=== PATIENT | female | born 1970 | race Caucasian/White ===

== ENCOUNTER 2016-09-17 08:50 | Day surgery (SDC) | payer BC ==
[2016-09-02 10:25] VITALS: BMI 26.6
--- NOTE | 2016-09-16 09:56 | HP ---
Admitting History and Physical - Primary Care Physician PCP: Clemente Mcginnis - Admission Chief Complaint: Left breast cancer/ Left breast Atypia History of Present Illness: 45 year old premenapausal femlae with abnormal mammogram showing left breast upper inner density. compression veiwe showed 1 cm density left 10:00 07/2016. 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 She has 4 clips in upper inner aspect of left breast which can be localized by bracketing them and removed with wide excision. Anterior to posterior 4.5 cm and distance 3 cm medially to laterally. Cancer is in the middle dept and there were two clips from both previous MRI and US core biopsies. There is a separate clip from biopsy in far upper outer aspect of left breast which showed some atypia which will also need needle localized. History Source: Patient Limitations to Obtaining History: No Limitations - Past Medical History ...LMP: 08/14/16 ...: No - Past Surgical History Additional Past Surgical History: ovarian cystectomy 2000 benign - Smoking History Smoking history: Never smoked Have you smoked in the past 12 months: No - Alcohol/Substance Use Hx Alcohol Use: Yes (OCCASIONAL) Home Medications - Allergies Allergies/Adverse Reactions: Allergies Allergy/AdvReac Type Severity Reaction Status Date / Time codeine AdvReac Severe HEADACHES Verified 09/02/16 10:17 - Home Medications Home Medications: Ambulatory Orders Cholecalciferol (Vitamin D3) [Vitamin D3] 2,000 unit PO DAILY 09/02/16 Multivitamins [Tab-A-Vit -] 1 tab PO DAILY 09/02/16 Family Disease History - Family Disease History Family Disease History: CA: Mother (uterine caner) Physical Examination Constitutional: Yes: Well Nourished Breast(s): Yes: Other (mildly ptotic full C cup bilaterally which are symetrical.post biopsy changes left breast typical changes from biopsies but no plapable masses. fatty dense breast bilaterally no palpable adenopathy bilaterally right breast negative.) Problem List - Problems (1) Breast cancer, left breast Code(s): C50.912 - MALIGNANT NEOPLASM OF UNSPECIFIED SITE OF LEFT FEMALE BREAST Qualifiers: Breast location: upper inner quadrant of breast Patient sex: female (2) Atypical ductal hyperplasia of left breast Code(s): N60.92 - UNSPECIFIED BENIGN MAMMARY DYSPLASIA OF LEFT BREAST Assessment/Plan Left breast wide excision with bracketed needl localizations left sentenel node biopsy , lymphoscintogram , possible axillary node dissection, mastopexy, left breast needle localization for atypia
[2016-09-17] MEDS ORDERED: ISOSULFAN BLUE 10 MG/ML VIAL SQ ONE (13:00)
[2016-09-17] MEDS ORDERED: LIDOCAINE HCL 1%, 10 MG/ML (20ML VIAL) ONE (13:00)
[2016-09-17] MEDS ORDERED: MIDAZOLAM HCL 2 MG/2 ML SINGLE DOSE VIAL ONE (13:10)
[2016-09-17] MEDS ORDERED: PROPOFOL 20 ML ONE ×4 (13:10→14:43)
[2016-09-17] MEDS ORDERED: LIDOCAINE HCL/PF 2% SDV 5ML VIAL ONE (13:14)
[2016-09-17] MEDS ORDERED: DEXAMETHASONE SOD PHOSPHATE 4 MG/1 ML VIAL ONE (13:14)
[2016-09-17] MEDS ORDERED: ceFAZolin SODIUM 1 GM VIAL ONE (13:14)
[2016-09-17] MEDS ORDERED: ONDANSETRON 4 MG/2 ML VIAL ONE ×2 (13:14→15:58)
[2016-09-17] MEDS ORDERED: KETOROLAC TROMETHAMINE 30 MG/1 ML VIAL IVPUSH PRN (13:21)
[2016-09-17] MEDS ORDERED: DEXTROSE 5%-0.45% SALINE 1,000 ML IV SCH (13:30)
[2016-09-17] MEDS ORDERED: ONDANSETRON 4 MG/2 ML VIAL IVPB PRN (13:41)
[2016-09-17] MEDS ORDERED: LIDOCAINE 1%-EPI 1:100,000 30 ML MDV IJ ONE (13:43)
[2016-09-17] MEDS ORDERED: PROMETHAZINE HCL 25 MG/1 ML VIAL IVPUSH PRN (15:52)
[2016-09-17] MEDS ORDERED: PROMETHAZINE HCL 25 MG/1 ML VIAL ONE (16:24)
[2016-09-17 17:11] VITALS: PULSE 61; TEMP 98.1
[2016-09-17 18:05] VITALS: BP 114/78
--- NOTE | 2016-09-18 16:09 | OP ---
DATE OF PROCEDURE: 09/17/2016 PROCEDURE: 1. Left breast wide excision with bracketed localization in the left breast upper inner quadrant 2. Left breast wide excision in the upper outer quadrant 3. Needle localization with left axillary sentinel lymph node biopsy 4. Left breast tissue arrangement reconstruction by Dr. Roberts PREOPERATIVE DIAGNOSIS: 1. Left breast cancer, upper inner quadrant 2. Left breast atypia, upper outer quadrant ANESTHESIA: General laryngeal mask airway anesthesia PRIMARY SURGEON: Kacie Mcginnis MD POURER: YOLA Santana COMPLICATIONS: There were no complications. PRIMARY SURGEON FOR THE BREAST TISSUE RE-ARRANGEMENT RECONSTRUCTION: Kacie Roberts MD BRIEF HISTORY: The patient is a 45-year-old G3, P2, premenopausal white female with [place] and [place] descent. She has no family history of breast or ovarian cancer, but her mother had uterine cancer. The patient had an abnormal mammography with a density in the upper inner aspect of the left breast, and ultrasound showed a 1-cm density about 1 cm from the nipple at the 10 o'clock region. She underwent an ultrasound-guided core biopsy showing infiltrating ductal cancer with mucinous features, which was ER/NM positive and HER2/yue negative by FISH. She had some separate calcifications anterior and posterior to the cancer, which were biopsied showing atypia. She then underwent an MRI showing some other findings in the upper outer aspect of the left breast, and she underwent an MRI biopsy of the upper outer quadrant area showing atypia. She also had a re-biopsy of the same cancer region under MRI, which again came back with the cancer. On reviewing the films, it was felt that we could do a bracketed localization and excision with breast conservation for this upper inner quadrant left breast cancer as long as we could do a tissue re-arrangement, and she was seen by the plastic surgeon preoperatively. The patient understood the need for a separate excision of the atypia in the upper outer aspect as well as a sentinel lymph node biopsy. The patient was brought in for the procedure on September 17, 2016 and first went to [facility] where the needle localization as well as lymphoscintigraphy was performed. She was then brought to [place], and in the holding area site, verification was made and informed consent was obtained. She was marked preoperatively by the plastic surgeon for a slight mastopexy and tissue re-arrangement. She was brought into the operating room and laid on the OR table in the supine position. Venodynes were placed on the lower extremities prior to induction. She received a gram of Ancef prior to incision. She underwent general laryngeal mask airway anesthesia. Both breasts were sterilely prepped and draped in the usual fashion with the wires prepped in the field. 3 mL of Lymphazurin Blue were injected intradermally just on the upper aspect of the nipple areolar complex on the left breast. The sentinel lymph node biopsy was first performed. An incision was made just below the hair barrier of the left axilla, and a blue lymphatic was easily seen, coursing to a blue hot node with a 10-second gamma count of 10,027. The second hot node, which was not blue was removed with a 10-second gamma count of 1,964. No other blue or hot nodes were found, and background counts to move these 2 nodes was 132. These nodes were both sent for permanent section in formalin. Hemostasis was achieved. The upper outer quadrant wide excision was undertaken through the axillary incision. We also removed the tissue around the wire in the upper outer aspect of the left breast and was oriented with the long lateral short superior suture, and specimen radiograph showed removal of the clip in question. Hemostasis was achieved, and the axillary wound was closed using interrupted 2-0 plain suture. The skin was closed using an interrupted 3-0 deep dermal Vicryl suture and a running 4-0 subcuticular Biosyn suture. At this point, a mastopexy reduction and tissue re-arrangement incision was made just on the superior periareolar border of the left breast nipple areolar complex. We were able to remove a fair amount of tissue since we were doing a mastopexy reduction with plastic surgery. She had bracketed localization of both the anterior and posterior aspects of the upper inner aspect of the left breast. Dissection was undertaken around both wires, being sure to remove all the tissue between them. The specimen was removed all the way down to the pectoralis major muscle. The specimen was oriented with a long lateral short superior suture and specimen radiographs with removal of all four clips in question with the cancer in the middle of the specimen. Hemostasis was achieved. At this point, Dr. Roberts became the primary surgeon to perform the mastopexy and tissue re-arrangement reduction. A drain was placed. All wounds were closed by plastic surgery. The patient did well and will be recovered in the post anesthesia care unit and discharged home the same day once discharge criteria are met. She is to be followed up in the office in 1 week for a formal wound pathology check. She was instructed to continue to wear a compressive bra and to empty her drain twice a day. All closure will be dictated separately by plastic surgery. All sponge and needle counts were correct at the end of the case. KACIE MCGINNIS M.D. [id number]
--- NOTE | 2016-09-22 20:30 | OP ---
DATE OF OPERATION: 09/17/2016 SURGEON: Kacie Roberts MD NATURAL RESOURCE SPECIALIST SURGEON: YOLA Warren PREOPERATIVE DIAGNOSIS: Breast cancer, left breast. POSTOPERATIVE DIAGNOSIS: Breast cancer, left breast. OPERATIVE PROCEDURE: Left breast reconstruction with other technique. OPERATIVE INDICATION: The patient is a young woman who was brought to the operating room by Dr. Kacie Mcginnis for left breast excision and sentinel lymph node biopsy. The patient had a significant excision of the left breast and reconstruction was required. The risks and benefits of surgical versus non-surgical alternatives, as well as material complications of the procedure, were described to the patient preoperatively. She agreed to the planned procedure. The patient was marked in the standing position preoperatively for outline of a reconstruction with other technique. OPERATIVE PROCEDURE IN DETAIL: The patient was taken to the operating room, and after induction of general anesthesia in supine position, both arms were extended and padded, Venodyne boots were placed. The markings which were made in the standing position were outline on the chest wall, and Dr. Mcginnis performed a left sentinel lymph node biopsy. When this was accomplished, attention was turned to by me to the breast. An incision was made down through skin to the dermal tissue of the left breast, according to the pattern, and the pattern was then de-epithelialized. At this point, I assisted Dr. Mcginnis with performing the wide extirpation of the left breast, and this portion of the operation will be dictated by him under separate cover. Upon completion of the extirpation, copious irrigation of the wound was performed, and then in order to reconstruct the breast, an incision was made and planned under optical magnification of 2.5 power using electrocautery. An incision was made in the lateral portion of the left breast down through the breast tissue down to the underlying chest wall. An advancement flap was then created on the lateral portion of the breast, advancing the entire upper pole of the left breast into a more medial fashion. The entire upper inner portion of the breast was required to be reconstructed, and a flap was then created. This flap was advanced and closed upon other tissue in multiple layered fashion using 2-0 Vicryl suture on the deep tissue, down to the pectoralis muscle, and then advancing in multiple layers, 2-0 Vicryl suture, 3-0 PDS in a deep dermal fashion, and advancement flaps were created and closed on the skin and subcutaneous tissues. The nipple areolar complex was freed from its position and advanced and closed into its anatomic position, closing the tissues behind on themselves. Good shape and contour was seen of the breast at this point. All wounds were dressed sterilely with a compressive dressing, Steri-Strips, and a Surgi-Bra. She tolerated the procedure well. She went to the recovery room in satisfactory condition. KACIE ROBERTS M.D. [id number]
--- NOTE | 2016-09-23 16:00 | PATH ---
Surgical Pathology Report Patient Name: MIN ANTOINE [facility]. Rec. #: [id number] /Age/Gender: 1970 (Age: 45) / F Account: [id number] Location: [facility] Taken: 09/18/2016 Received: 09/18/2016 Reported: 09/23/2016 Physicians: Clemente Mcginnis M.D. Specimen(s) Received A: LEFT AXILLA SENTINEL NODE #1 B: LEFT AXILLA SENTINEL NODE #2 C: LEFT BREAST WIDE EXCISION UPPER OUTER QUADRANT D: LEFT BREAST SKIN E: LEFT BREAST WIDE EXCISION UPPER INNER QUADRANT F: LEFT BREAST SUPERIOR MARGIN G: LEFT BREAST INFERIOR MARGIN H: LEFT BREAST LATERAL MARGIN I: LEFT BREAST MEDIAL MARGIN J: LEFT BREAST DEEP MARGIN Clinical History Right wide excision for invasive ductal carcinoma in upper inner quadrant. Right wide excision for atypia in upper outer quadrant Final Diagnosis A. LYMPH NODE, LEFT AXILLARY SENTINEL NODE #1, EXCISION: ONE BENIGN LYMPH NODE (0/1) BY STANDARD HEMATOXYLIN AND EOSIN STAIN (MULTIPLE LEVELS EXAMINED). B. LYMPH NODE, LEFT AXILLARY SENTINEL NODE #2, EXCISION: ONE BENIGN LYMPH NODE (0/1) BY STANDARD HEMATOXYLIN AND EOSIN STAIN (MULTIPLE LEVELS EXAMINED). C. LEFT BREAST, UPPER OUTER QUADRANT, WIDE EXCISION WITH WIRE LOCALIZATION: FIBROADENOMA, AND BENIGN BREAST TISSUE WITH FIBROCYSTIC CHANGES INCLUDING ADENOSIS, COLUMNAR CELL CHANGE, STROMAL FIBROSIS, AND DUCTAL DILATATION. CHANGES CONSISTENT WITH PRIOR BIOPSY SITE PRESENT. D. SKIN, LEFT BREAST, EXCISION: SKIN WITH SCAR. NO CARCINOMA IDENTIFIED. E. LEFT BREAST, UPPER INNER QUADRANT, WIDE EXCISION WITH WIRE LOCALIZATION: INVASIVE MUCINOUS MICROPAPILLARY CARCINOMA/MUCINOUS CARCINOMA WITH MICROPAPILLARY PATTERN, INTERMEDIATE NUCLEAR GRADE, WITH ASSOCIATED CALCIFICATION. CARCINOMA CORRESPONDS TO SHELLI GRADE 1 OF 3 (TUBULE SCORE 2 OF 3, NUCLEAR GRADE 2 OF 3, MITOTIC SCORE 1 OF 3, TOTAL 5 OF 9). CARCINOMA MEASURES 1.5 CM IN GREATEST DIMENSION MEASURED ON A SLIDE. DUCTAL CARCINOMA IN SITU (DCIS), INTERMEDIATE NUCLEAR GRADE, CRIBRIFORM AND MICROPAPILLARY PATTERNS WITH ASSOCIATED CALCIFICATION PRESENT. AREA SUSPICIOUS FOR LYMPH-VASCULAR INVASION PRESENT. CHANGES CONSISTENT WITH PRIOR BIOPSY SITE PRESENT. INVASIVE CARCINOMA IS 0.3 CM FROM THE MEDIAL ASPECT OF THIS SPECIMEN, AND DCIS IS 0.6 CM FROM THE MEDIAL ASPECT OF THIS SPECIMEN (SEE SPECIMENS F-J FOR FINAL MARGINS). ADDITIONAL INTRADUCTAL PAPILLOMA PRESENT. REMAINING BREAST TISSUE WITH ATYPICAL DUCTAL HYPERPLASIA (ADH) ARISING IN A BACKGROUND OF FIBROCYSTIC CHANGES INCLUDING USUAL DUCTAL HYPERPLASIA (UDH), COLUMNAR CELL CHANGE, ADENOSIS, STROMAL FIBROSIS, DUCTAL DILATATION, CYSTIC APOCRINE METAPLASIA, AND ASSOCIATED CALCIFICATION. ADDITIONAL BIOPSY SITES PRESENT. F. LEFT BREAST, SUPERIOR MARGIN, EXCISION: BENIGN BREAST TISSUE. G. LEFT BREAST, INFERIOR MARGIN, EXCISION: BENIGN BREAST TISSUE WITH FIBROCYSTIC CHANGES INCLUDING USUAL DUCTAL HYPERPLASIA (UDH), COLUMNAR CELL CHANGE, STROMAL FIBROSIS, DUCTAL DILATATION, AND ASSOCIATED CALCIFICATION. H. LEFT BREAST, LATERAL MARGIN, EXCISION: ATYPICAL DUCTAL HYPERPLASIA (ADH) ARISING IN A BACKGROUND OF FIBROCYSTIC CHANGES INCLUDING USUAL DUCTAL HYPERPLASIA (UDH), ADENOSIS, COLUMNAR CELL CHANGE, STROMAL FIBROSIS, AND DUCTAL DILATATION. I. LEFT BREAST, MEDIAL MARGIN, EXCISION: COMPLEX SCLEROSING LESION WITH USUAL DUCTAL HYPERPLASIA (UDH), COLUMNAR CELL CHANGE, STROMAL FIBROSIS, DUCTAL DILATATION, AND ASSOCIATED CALCIFICATION. J. LEFT BREAST, DEEP MARGIN, EXCISION: BENIGN ADIPOSE TISSUE AND SKELETAL MUSCLE. Comment: Also see prior specimens [id number] and [id number] Comments Breast Invasive Carcinoma: Surgical Pathology Cancer Case Summary Based on AJCC/UICC TNM, 7th edition Procedure _X__ Excision with image-guided localization Lymph Node Sampling (select all that apply) (required only if lymph nodes are present in the specimen) _X__ [place] lymph node(s) Specimen Laterality _X__ Left Tumor Size: Size of Largest Invasive Carcinoma Greatest dimension of largest focus of invasion over 1 mm: 15 mm Tumor Focality _X__ Single focus of invasive carcinoma Macroscopic and Microscopic Extent of Tumor Skin _X__ Invasive carcinoma does not invade into the dermis or epidermis Nipple _X__ Not applicable (excisions less than total mastectomy) Ductal Carcinoma In Situ (DCIS) _X__ DCIS is present _X__ as a minor component (< 25% of tumor) Histologic Type of Invasive Carcinoma : _X__ Other(s) (specify): _MUCINOUS MICROPAPILLARY CARCINOMA/ MUCINOUS CARCINOMA WITH MICROPAPILLARY PATTERN Histologic Grade: ([employer] Histologic Score) Tubular Differentiation _X__ Score 2 Nuclear Pleomorphism _X__ Score 2 Mitotic Rate _X__ Score 1 Overall Grade _X__ Grade 1: scores of 3, 4, or 5 (well differentiated) Margins _X__ Margins uninvolved by invasive carcinoma (required only if residual invasive carcinoma is present in specimen) Distance from closest margin: Cannot be determined. Carcinoma is 3 mm from medial aspect of wide excision (Specimen E), and is not present in final margins Specimens F-J) _X__ Margins uninvolved by DCIS (required only if residual DCIS is present in specimen) Distance from closest margin: Cannot be determined. DCIS is 6 mm from medial aspect of wide excision (Specimen E), and is not present in final margins Specimens F-J) Lymph-Vascular Invasion _X__ Indeterminate Lymph Nodes Total number of lymph nodes examined (sentinel and nonsentinel): 2 Number of sentinel lymph nodes examined: 2 Number of lymph nodes with macrometastases ( > 2 mm): 0 Number of lymph nodes with micrometastases (>0.2 mm to 2 mm and/or >200cells):0 Number of lymph nodes with isolated tumor cells (=0.2 mm and =200 cells): 0 Extranodal Extension _X__ Not applicable Pathologic Staging (pTNM) Primary Tumor (Invasive Carcinoma): pT1c Regional Lymph Nodes (pN): pN0(sn) Biomarker Studies Results of ER and CO studies performed on this specimen (block #E2) at [facility] are as follows: ER (clone [id number] mouse monoclonal antibody by [employer]): >95% nuclear staining with strong intensity (Positive). CO (clone16 mouse monoclonal antibody by [employer]) : ~90% nuclear staining with strong to moderate intensity (Positive). Results of Her2 (IHC) & Ki-67 studies performed on this specimen (block #E2) at [place], [place] ([id number]) are as follows: Her2 IHC (EP3 from [employer], formerly known as [id number], using [employer] Polymer Refine detection kit): 1+ Negative Ki67: ~20% (Intermediate proliferative index) Positive and negative controls (internal if applicable) show appropriate results. Formalin fixation and cold ischemic times are within current ASCO/CAP recommendations for ER, CO and Her2 testing. Electronically Signed Jason Judd M.D. Gross Description A. Received in formalin labeled "left axilla sentinel node #1," is a 1.2 x 0.5 x 0.3 cm maravilla, irregular lymph node. The specimen is submitted in toto in one cassette. B. Received in formalin labeled "left axilla sentinel node #2," is a 0.3 x 0.3 x 0.2 cm maravilla, irregular lymph node. The specimen is submitted in toto in one cassette. C. Received in formalin, labeled "left breast wide excision upper outer quadrant atypia," is a 5.0 x 3.1 x 2.5 cm. maravilla-yellow, irregular, portion of fibroadipose tissue with a needle localization wire present. There is a short suture marking the superior aspect and a long suture marking the lateral aspect, per the surgeon. There is no skin or nipple present. The specimen is inked as follows: superior and lateral blue; inferior green; medial yellow; anterior red; deep black. The specimen is serially sectioned from superior to inferior. Sectioning reveals a focus of hemorrhage, consistent with a previous biopsy site in the superior aspect of the specimen. The hemorrhagic focus contains a metallic biopsy clip. The biopsy site is surrounded by firm fibrous tissue. No definitive masses are identified. The remaining breast parenchyma displays foci of white fibrous tissue. Toddler Guide sections are submitted in 8 cassettes as follows: 1-superior margin; 1-7-prdkkryn biopsy site with surrounding fibrous tissue sequentially submitted from superior to inferior (each with medial, lateral, anterior and deep margins; biopsy clip in cassette 4); 9-6-qnyphyeakj fibrous tissue (each with medial, lateral and deep margins); 8-inferior margin. Time to formalin fixation: 16 minutes Total formalin fixation time: Approximately 27 hours. D. Received in formalin labeled "left breast skin," are 2 maravilla fragments of skin measuring 10.0 x 0.7 cm and 12.5 x 0.9 cm. No discrete lesions are identified. Toddler Guide sections are submitted in one cassette. E. Received in formalin, labeled "left breast wide excision upper inner quadrant," is an 8.5 x 6.9 x 3.2 cm. maravilla-yellow, irregular, portion of fibroadipose tissue with 2 needle localization wires present. There is a short suture marking the superior aspect and a long suture marking the lateral aspect, per the surgeon. There is no skin or nipple present. The specimen is inked as follows: superior and lateral blue; inferior green; medial yellow; anterior red; deep black. The specimen is serially sectioned from superior to inferior. Sectioning reveals a 1.2 x 1.0 x 0.9 cm maravilla, indurated mass in the inferior-medial aspect of the specimen, associated with a hemorrhagic biopsy cavity. The biopsy cavity contains a metallic clip. The mass focally abuts the medial and anterior margins. The mass is at 1.0 cm from the inferior margin. There is a second hemorrhagic previous biopsy cavity at the superior aspect of the specimen, surrounded by firm fibrous tissue. No definite mass is associated with the cavity. The cavity focally abuts the superior and anterior margins. There is a third hemorrhagic previous biopsy site in the central portion of the specimen, abutting the deep margin. There is a biopsy clip identified within the previous biopsy site and the site is surrounded by firm fibrous tissue containing mucinous material. No definite mass is associated with the biopsy site. The remaining breast parenchyma displays multifocal white fibrous tissue. Toddler Guide sections are submitted in 18 cassettes as follows: 1-2-mass with anterior and medial margins; 3-mass with anterior margin; 4-7-biopsy cavity associated with mass (each section displays anterior and deep margins; clip in cassette 6); 8-superior margin with second biopsy site; 0-73-jjldbieebe superior (second) biopsy site (each section displays lateral, anterior and deep margins); 62-54-prjrvsd (third) biopsy site (each with deep margin; clip in cassette 14); 18-inferior margin. Time to formalin fixation: 20 minutes Total formalin fixation time: Approximately 27 hours. F. Received in formalin labeled "left breast superior margin," a 1.8 x 1.0 x 0.8 cm irregular portion of fibroadipose tissue with a suture marking the biopsy cavity side, per the surgeon. The new margin is inked green and the specimen is serially sectioned. The specimen is entirely submitted in 2 cassettes. G. Received in formalin labeled "left breast inferior margin," is a 2.0 x 1.1 x 0.5 cm irregular portion of fibroadipose tissue with a suture marking the biopsy cavity side, per the surgeon. The new margin is inked green and the specimen is serially sectioned. The specimen is entirely submitted in 2 cassettes. H. Received in formalin labeled "left breast lateral margin," is a 2.0 x 1.6 x 0.6 cm irregular portion of fibroadipose tissue with a suture marking the biopsy cavity side, per the surgeon. The new margin is inked green and the specimen is serially sectioned. The specimen is entirely submitted in 2 cassettes. I. Received in formalin labeled "left breast medial margin," is a 1.8 x 1.5 x 0.6 cm irregular portion of fibroadipose tissue with a suture marking the biopsy cavity side, per the surgeon. The new margin is inked green and the specimen is serially sectioned. The specimen is entirely submitted in 3 cassettes. J. Received in formalin labeled "left breast deep margin," is a 1.7 x 1.2 x 0.5 cm irregular portion of fibroadipose tissue with a suture marking the biopsy cavity side, per the surgeon. The new margin is inked green and the specimen is serially sectioned. The specimen is entirely submitted in 2 cassettes. 09/18/201609/18/2016
== END 2016-09-17 18:59 | disposition home or self-care (01) ==
LOC: FASU 08:50
PROVIDERS: ATTEND Surgery Surgical Oncology
PROC: 0HBU0ZZ Excision of Left Breast, Open Approach (ICD-10-PCS; principal; 2016-09-17 13:57)
PROC: 0HBU0ZX Excision of Left Breast, Open Approach, Diagnostic (ICD-10-PCS; 2016-09-17 13:57)
PROC: 0HRU07Z Replacement of Left Breast with Autologous Tissue Substitute, Open Approach (ICD-10-PCS; 2016-09-17 13:57)
DX: C50.212 Malignant neoplasm of upper-inner quadrant of left female breast (principal); N60.92 Unspecified benign mammary dysplasia of left breast; D24.2 Benign neoplasm of left breast; N60.22 Fibroadenosis of left breast; N60.32 Fibrosclerosis of left breast; N60.82 Other benign mammary dysplasias of left breast; N64.89 Other specified disorders of breast; L90.5 Scar conditions and fibrosis of skin
CPT/HCPCS: 19281; 19282; 78195-TC; 84703; 88305-TC; 88307-TC; 88342-TC; 94760; A9541